=== PATIENT | male | born 1950 | race Caucasian/White ===

== ENCOUNTER 2019-04-01 15:46 | Observation (INO) | payer MEDICARE ==
[~2019-04-01] VITALS: Ht 185.4 cm; Wt 104.3 kg
[~2019-04-01 15:46] MED LIST: ASPIRIN81 MG PO; CLOPIDOGREL75 MG PO; CO Q10; D3-10001000 UNIT; IBUPROFEN600 MG PO; LEVOTHYROXIN25 MC1 PO; OLMESARTAN MEDO1 TA1; PROCARDIA XL90 MG PO; TAMSULOSIN HCL0.4 MG PO; [UNRECOGNIZED DRUG - OTHER]
[2019-04-01 16:45] LABS: HEMATOCRIT 44.4 % (39.0-50.0); HEMOGLOBIN 15.5 g/dl (14.0-18.0); IMMATURE GRANULOCYTES 0.4 % (0.0-5.0); MEAN CELL VOLUME 85.4 fL CALC (80.0-100.0); MEAN CORPUSCULAR HGB 29.8 pG CALC (26.0-32.0); MEAN CORPUSCULAR HGB CONC 34.9 g/L CALC (32.0-36.0); NEUT# 5.6 thou/uL (1.82-7.42); RED BLOOD COUNT 5.2 mill/uL (4.70-6.10); RED CELL DISTRI WIDTH 13.1 % (11.5-15.5)
[2019-04-01 16:45] LABS: URINE BILIRUBIN - DIPSTICK NEGATIVE (NEGATIVE); URINE BLOOD DIPSTICK TRACE-INTACT (NEGATIVE); URINE COLOR YELLOW; URINE GLUCOSE - DIPSTICK NEGATIVE (NEGATIVE); URINE KETONE NEGATIVE (NEGATIVE); URINE LEUK ESTERASE NEGATIVE (NEGATIVE); URINE NITRITE - DIPSTICK NEGATIVE (Negative); URINE PH 6.5 (4.5-8.0); URINE PROTEIN - DIPSTICK NEGATIVE (NEG-TRACE); URINE UROBILINOGEN - DIPSTICK 0.2 E.U./dL (0.2)
[2019-04-01 16:49] LABS: ALBUMIN 5.3 g/dL (3.2-5.0); ALKALINE PHOSPHATASE 78 u/l (38-126); ANION GAP 17 (6-22 (CALC)); BUN 17 mg/dL (8-23); BUN/CREATININE RATIO 18 (12-20 (CALC)); CARBON DIOXIDE 25 mmol/l (22-30); CHLORIDE 98 mmol/l (95-108); GFR > 60 ML/MIN (>=60 (CALC)); GFR FOR AFR.AMER. > 60 ML/MIN (>=60 (CALC)); LIPASE 118 u/l (23-300); POTASSIUM 3.3 mmol/l (3.5-5.1); SGOT/AST 42 u/l (19-48); SODIUM 137 mmol/l (137-146)
[2019-04-01 16:51] LABS: BILIRUBIN, TOTAL 1.3 mg/dL (0.0-1.4)
[2019-04-01] MEDS ORDERED: VIAGRA50 MG PO (17:45)
[2019-04-01 21:00] VITALS: BP 149/83
[2019-04-01 23:56] VITALS: BP 119/68
[2019-04-02 04:07] VITALS: BP 123/71
[2019-04-02 06:12] LABS: HEMATOCRIT 39.4 % (39.0-50.0); HEMOGLOBIN 13.8 g/dl (14.0-18.0); IMMATURE GRANULOCYTES 0.5 % (0.0-5.0); MEAN CELL VOLUME 85.3 fL CALC (80.0-100.0); MEAN CORPUSCULAR HGB 29.9 pG CALC (26.0-32.0); NEUT# 6.18 thou/uL (1.82-7.42); RED BLOOD COUNT 4.62 mill/uL (4.70-6.10)
[2019-04-02 06:32] LABS: ALKALINE PHOSPHATASE 54 u/l (38-126); AMYLASE 68 u/l (30-110); ANION GAP 13 (6-22 (CALC)); BILIRUBIN, TOTAL 1.2 mg/dL (0.0-1.4); BUN 21 mg/dL (8-23); BUN/CREATININE RATIO 19 (12-20 (CALC)); CARBON DIOXIDE 26 mmol/l (22-30); CHLORIDE 103 mmol/l (95-108); CREATININE 1.1 mg/dL (0.7-1.3); GFR > 60 ML/MIN (>=60 (CALC)); GFR FOR AFR.AMER. > 60 ML/MIN (>=60 (CALC)); LIPASE 76 u/l (23-300); MAGNESIUM 2.1 mg/dL (1.6-2.3); POTASSIUM 3.5 mmol/l (3.5-5.1); SGOT/AST 24 u/l (19-48); SODIUM 138 mmol/l (137-146)
[2019-04-02 06:35] LABS: ALBUMIN 4.1 g/dL (3.2-5.0); TOTAL PROTEIN 6.6 g/dL (6.3-8.2)
[2019-04-02 09:01] VITALS: BP 141/81
[2019-04-02 11:00] VITALS: BP 140/79
[2019-04-02 15:52] VITALS: BP 148/80
[2019-04-02 20:19] VITALS: BP 142/80
[2019-04-02 21:10] VITALS: BP 137/80
== END 2019-04-02 21:20 | disposition short-term general hospital (02) ==
LOC: ED 15:46 → ED-I 19:19 → ED 19:31 → MS2 19:32
PROVIDERS: ADMIT Internal Medicine Nephrology; ATTEND Internal Medicine Nephrology
DX: I25.110 Atherosclerotic heart disease of native coronary artery with unstable angina pectoris (principal); I10 Essential (primary) hypertension; E87.6 Hypokalemia; E78.5 Hyperlipidemia, unspecified; E03.9 Hypothyroidism, unspecified; E55.9 Vitamin D deficiency, unspecified; N40.0 Benign prostatic hyperplasia without lower urinary tract symptoms; N52.9 Male erectile dysfunction, unspecified; I25.2 Old myocardial infarction; Z95.5 Presence of coronary angioplasty implant and graft; Z79.02 Long term (current) use of antithrombotics/antiplatelets; Z79.82 Long term (current) use of aspirin
CPT/HCPCS: Q9967

== ENCOUNTER 2019-07-04 16:04 | Observation (INO) | payer MEDICARE ==
[~2019-07-04] VITALS: Ht 185.4 cm; Wt 97.0 kg
[~2019-07-04 16:04] MED LIST changes: +VIAGRA50 MG PO
--- NOTE | 2019-07-04 16:04 | NUR ---
PT TO ROOM WITH STEADY GAIT
--- NOTE | 2019-07-04 16:35 | NUR ---
PT RESTING ON STRETCHER, VERY ANXIOUS AND COMPLAINS OF PAIN, VERY SHORT WITH STAFF STATING YOU GOTTA DO SOMETHING FOR ME, I CANT BE ANSWERING ALL THESE STUPOD QUESTIONS WHEN IM HIS MISERABLE, ASK MY SHE CAN ANSWER ALL THOSE QUESTIONS, ATTEMPTS TO EDUCATE PT REGARDING PLAN OF CARE STEPS NECESSARY TO PROVIDE CARE ETC, GO UNHEARD PT TALKSCONINUOUSLY ABOUT HOW MISERABLE HE IS ETC..
[2019-07-04] MEDS ORDERED: METOPROL TAR25 MG PO (17:17)
[2019-07-04 17:22] LABS: IMMATURE GRANULOCYTES 0.5 % (0.0-5.0); MEAN CELL VOLUME 86.9 fL CALC (80.0-100.0); MEAN CORPUSCULAR HGB 30.1 pG CALC (26.0-32.0); MEAN CORPUSCULAR HGB CONC 34.6 g/L CALC (32.0-36.0); NEUT# 9.45 thou/uL (1.82-7.42); RED BLOOD COUNT 3.52 mill/uL (4.70-6.10); RED CELL DISTRI WIDTH 13.6 % (11.5-15.5)
[2019-07-04 17:23] LABS: HEMATOCRIT 30.6 % (39.0-50.0); HEMOGLOBIN 10.6 g/dl (14.0-18.0)
--- NOTE | 2019-07-04 17:30 | NUR ---
1645 - [address]F [address] DANG INSERTION ATEMPTED WITHOUT SUCCESS. (PENILE BLEEDING NOTED) 1646 - 20G IV ACCESS INSERTED IN LAC ON FIRST ATTEMPT 1650 - MEDICATED FOR PAINAND ANXIETY 1655 18 F COUDE INSERTED WITH 500 ML ARNULFO RED BLOODY URINE OUT. 1700 - SPOKE WITH AND 18F COUDE REMOVED AND 223F [address] DANG INSERTED WITHOUT INCIDENT AND ANOTHER 800 ML ARNULFO RED BLOODY URINE NOTED. WILL START CBI AFTER LARGE VOLUME BAG OBTAINED 1715 - CBI INTIATED AND URINE CLEARS FAIRLY QUICKLY PT VERBALIZES IMPROVED PAIN CONTROL AND COMFORT. AT BEDSIDE CURRENTLY AWARE OF PLANNED ADMISSION FOR CBI OVERNIGHT AND ADRIANA TO READDRESS IN AM
[2019-07-04 17:37] LABS: ALBUMIN 3.9 g/dL (3.2-5.0); ALKALINE PHOSPHATASE 75 u/l (38-126); ANION GAP 14 (6-22 (CALC)); BILIRUBIN, TOTAL 0.8 mg/dL (0.0-1.4); BUN 21 mg/dL (8-23); BUN/CREATININE RATIO 22 (12-20 (CALC)); CARBON DIOXIDE 26 mmol/l (22-30); CHLORIDE 98 mmol/l (95-108); GFR > 60 ML/MIN (>=60 (CALC)); GFR FOR AFR.AMER. > 60 ML/MIN (>=60 (CALC)); POTASSIUM 3.4 mmol/l (3.5-5.1); SGOT/AST 19 u/l (19-48); TOTAL PROTEIN 6.6 g/dL (6.3-8.2)
[2019-07-04 17:38] LABS: SODIUM 135 mmol/l (137-146)
[2019-07-04] MEDS ORDERED: ISOSORB MONO60 M1 PO (18:16)
[2019-07-04] MEDS ORDERED: ATORVASTATIN CA40 MG PO (18:17)
[2019-07-04] MEDS ORDERED: NITROGLYCERIN0.4 MG SL (18:18)
[2019-07-04] MEDS ORDERED: HYDROCO/APAP1 T10 PO (18:18)
--- NOTE | 2019-07-04 19:00 | NUR ---
RECEIVED REPORT FROM LALA. MADINA RUNNING WITH JANA CARMEN. N/C AT THIS TIME
--- NOTE | 2019-07-04 19:00 | NUR ---
REPORT RECEIVED FROM CARLOS ALBERTO BILL. PT RESTING IN BED. NO S/S OF DISTRESS AT THIS TIME. WILL CONTINUE TO MONITOR.
--- NOTE | 2019-07-04 19:20 | NUR ---
REPORT CALLED TO CARLOS ALBERTO MONTOYA
--- NOTE | 2019-07-04 19:35 | NUR ---
TO MS2 VIA STRETCHER. CBI INFUSING-TOLERATING WELL. UROLOGIST TO SEE IN AM.
[2019-07-04 19:40] VITALS: BP 134/75
--- NOTE | 2019-07-04 19:40 | NUR ---
PT ARRIVED TO THE FLOOR VIA STRETCHER, ACCOMPANIED BY ED STAFF. PT X3 ASSIST FROM STRETCHER TO BED. ALERT AND ORIENTED. RESPIRATIONS EVEN AND UNLABORED ON RA. LUNGS SOUND CLEAR. IV #20 LAC, APPEARS HEALTHY AND PATENT. CBI IN PROGRESS. BRUISING NOTED TO THE ABDOMEN. PEDAL PULSES WEAK. PT ORIENTED TO ROOM AND CALL [facility] SYSTEM. SAFETY PRECAUTIONS IN PLACE. WILL CONTINUE TO MONITOR.
--- NOTE | 2019-07-05 00:02 | NUR ---
PT RESTING IN BED. NO SIGNS OR SYMPTOMS OF DISTRESS. CBI IN PROGRESS, DANG DRAINING TO GRAVITY. SAFETY PRECAUTIONS IN PLACE. WILL CONTINUE TO MONITOR.
[2019-07-05 04:00] VITALS: BP 130/76
--- NOTE | 2019-07-05 04:58 | NUR ---
PT RESTING IN BED WITH EYES CLOSED. RESPIRATIONS EVEN AND UNLABORED ON RA. NO S/S OF DISTRESS AT THIS TIME. WILL CONTINUE TO MONITOR.
[2019-07-05 05:35] LABS: HEMATOCRIT 27.2 % (39.0-50.0); HEMOGLOBIN 9.4 g/dl (14.0-18.0); MEAN CELL VOLUME 88.3 fL CALC (80.0-100.0); MEAN CORPUSCULAR HGB 30.5 pG CALC (26.0-32.0); MEAN CORPUSCULAR HGB CONC 34.6 g/L CALC (32.0-36.0); RED BLOOD COUNT 3.08 mill/uL (4.70-6.10); RED CELL DISTRI WIDTH 13.5 % (11.5-15.5)
[2019-07-05 05:36] LABS: ANION GAP 12 (6-22 (CALC)); BUN 17 mg/dL (8-23); BUN/CREATININE RATIO 21 (12-20 (CALC)); CARBON DIOXIDE 27 mmol/l (22-30); CHLORIDE 99 mmol/l (95-108); CREATININE 0.8 mg/dL (0.7-1.3); GFR > 60 ML/MIN (>=60 (CALC)); GFR FOR AFR.AMER. > 60 ML/MIN (>=60 (CALC)); POTASSIUM 3.4 mmol/l (3.5-5.1); SODIUM 135 mmol/l (137-146)
[2019-07-05 07:17] VITALS: BP 148/79
--- NOTE | 2019-07-05 08:35 | NUR ---
CALL RECEIVED FROM DR OLMSTEAD. INFORMED OF PTS ASSESSMENT AND DANG DRAINING CLEAR PINK TINGED URINE WITH CBI GOING SLOWLY, NO CLOTS NOTED. PER DR OLMSTEAD STOP CBI. IF URINE REMAINS PINK WITH NO BLOOD OR CLOTS REMOVE DANG AT 10AM. ORDER RECEIVED WITH VERBAL READ BACK CONFIRMATION AND CHARTED. DR OLMSTEAD DID CALL PT AND SPEAK TO PT REGARDING HIS PLAN . PT RESTING IN BED. RESP EVEN AND UNLABORED. PT DENIES ANY NAUSEA OR DISCOMFORT. LUNGS CLEAR BILAT. ABD SOFT WITH BOWEL SOUNDS PRESENT. [address] WAY DANG DRAINING PINK TINGED URINE. IV SITE PATENT IN LEFT A.C. NSS AT 100CC/HR. PT DENIES ANY DISCOMFORT. FREQUENT ROUNDS MADE. CALL YAO WITHIN REACH.
--- NOTE | 2019-07-05 09:40 | NUR ---
AT BEDSIDE. CBI REMAINS OFF. DANG IS DRAINING REDDISH URINE WITH VERY SMALL CLOTS NOTED IN TUBING. PT DOES C/O LOWER ABD PRESSURE. WILL CONTINUE TO MONITOR. CALL YAO WITHIN REACH.
--- NOTE | 2019-07-05 10:30 | NUR ---
CALL PLACED TO DR OLMSTEAD ON HIS CELL PHONE. INFORMED DANG IS DRAINING BLOODY URINE WITH FEW SMALL CLOTS NOTED IN TUBING. NEW ORDER RECEIVED TO RESUME CBI AND PT MAY HAVE 2GM NA DIET AND MAY EAT. ORDER RECEIVED WITH VERBAL READ BACK CONFIRMATION AND CHARTED.
--- NOTE | 2019-07-05 10:35 | NUR ---
PT AND PTS INFORMED THIS SOFTWARE INSTALLER SPOKE WITH DR OLMSTEAD AND HE IS AWARE DANG IS DRAINING BLOODY URINE WITH SMALL CLOTS. INFORMED CBI TO BE RESUMED AND PT MAY EAT. CBI RESUMED AND LUNCH TRAY HAS BEEN ORDERED. MAIKEL CARCAMO FROM CASE MANAGEMENT INTO SPEAK WITH PT AND HIS .
--- NOTE | 2019-07-05 12:15 | NUR ---
PT SITTING IN RECLINER EATING LUNCH. IV SITE PATENT CBI INFUSING . DANG IS PATENT DRAINING PINK TINGED URINE WITH NO CLOTS NOTED. PT DENIES ANY PAIN OR DISCOMFORT. AT BEDSIDE. FREQUENT ROUNDS MADE. CALL YAO WITHIN REACH.
--- NOTE | 2019-07-05 12:35 | NUR ---
DR HILL IN TO SPEAK WITH PT REGARDING PLAN OF CARE. UPDATED DR HILL ON PTS ASSESSMENT AND INFORMED DR OLMSTEAD SAID TO CONTINUE CBI.
[2019-07-05 15:00] VITALS: BP 122/70
--- NOTE | 2019-07-05 15:01 | NUR ---
PT RESTING IN BED WITH AT BEDSIDE. PT MEDICATED WITH TYLENOL 650MG P.O FOR LEG DISCOMFORT. IV SITE PATENT. DANG CATH IS DRAINING CLEAR LIGHT PINK URINE WITHOUT ANY DIFFICULTY. CBI INFUSING SLOWLY . WILL CONTINUE TO MONITOR. FREQUENT ROUNDS MADE. CALL YAO WITHIN REACH.
--- NOTE | 2019-07-05 16:28 | NUR ---
PT RESTING IN BED. ASSESSMENT UNCHANGED. DANG CONTINUE TO DRAIN CLEAR TO LIGHT PINK URINE WITHOUT ANY DIFFICULTY. CBI ON SLOWLY. IV SITE PATENT. PT OFFERS NO COMPLAINTS AT THIS TIME. FREQUENT ROUNDS MADE. CALL YAO WITHIN REACH.
--- NOTE | 2019-07-05 17:30 | NUR ---
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 AT BEDSIDE. DANG IS DRAINING CLEAR PALE URINE. CBI STOPPED TEMPORARILY TO SEE IF PT IS HAVING ANY BLEEDING. NO BLEEDING NOTED. PT DENIES ANY DISCOMFORT. IV SITE PATENT. ASSESSMENT UNCHANGED. VSS. CALL YAO WITHIN REACH.
--- NOTE | 2019-07-05 20:00 | NUR ---
PT RESTING IN BED. ALERT AND ORIENTED. RESPIRATIONS EVEN AND UNLABORED ON RA. LUNGS SOUND CLEAR. PEDAL PULSES STRONG. CBI, 3 WAY DANG DRAINING TO GRAVITY. #20 LAC WITH NS @ 100 ML/HR, SITE APPEARS HEALTHY. CALL YAO WITHIN REACH. WILL CONTINUE TO MONITOR.
[2019-07-05 20:37] VITALS: BP 128/74
--- NOTE | 2019-07-06 00:30 | NUR ---
PT RESTING IN BED. RESPIRATIONS EVEN AND UNLABORED ON RA. SAFETY PRECAUTIONS IN PLACE. WILL CONTINUE TO MONITOR.
[2019-07-06 04:00] VITALS: BP 125/68
--- NOTE | 2019-07-06 04:15 | NUR ---
PT RESTING IN BED. RESPIRATIONS EVEN AND UNLABORED ON RA. NO S/S OF DISTRESS AT THIS TIME. SAFETY PRECAUTIONS IN PLACE. WILL CONTINUE TO MONITOR.
[2019-07-06 06:00] LABS: HEMATOCRIT 30.4 % (39.0-50.0); HEMOGLOBIN 10.3 g/dl (14.0-18.0); MEAN CELL VOLUME 88.6 fL CALC (80.0-100.0); MEAN CORPUSCULAR HGB CONC 33.9 g/L CALC (32.0-36.0); RED BLOOD COUNT 3.43 mill/uL (4.70-6.10); RED CELL DISTRI WIDTH 13.5 % (11.5-15.5)
[2019-07-06 06:16] LABS: ANION GAP 10 (6-22 (CALC)); BUN 10 mg/dL (8-23); BUN/CREATININE RATIO 14 (12-20 (CALC)); CARBON DIOXIDE 27 mmol/l (22-30); CHLORIDE 104 mmol/l (95-108); CREATININE 0.7 mg/dL (0.7-1.3); GFR > 60 ML/MIN (>=60 (CALC)); GFR FOR AFR.AMER. > 60 ML/MIN (>=60 (CALC)); POTASSIUM 3.8 mmol/l (3.5-5.1); SODIUM 137 mmol/l (137-146)
--- NOTE | 2019-07-06 08:00 | NUR ---
PT AWAKE RESTING IN BED. PT IS ALERT AND ORIENTED X4. PT IS FORGETFUL AT TIMES. LUNGS CLEAR BILAT. ABD SOFT AND NONDISTENDED WITH BOWEL SOUNDS PRESENT. 3 WAY DANG CATH IS PATENT DRAINING LIGHT PALE URINE WITH NO CLOTS NOTED. CBI INFUSING SLOWLY. NO LOWER EXT EDEMA NOTED. PEDAL PULSES PALPATED BILAT. IV SITE PATENT IN LEFT A.C. NO REDNESS OR SWELLING AT SITE . IVF NSS AT 100CC/HR. PT DENIES ANY DISCOMFORT. FREQUENT ROUNDS MADE. CALL YAO WITHIN REACH.
[2019-07-06 08:31] VITALS: BP 125/71
--- NOTE | 2019-07-06 10:18 | NUR ---
PT OOB IN CHAIR. AT BEDSIDE. RESP EVEN AND UNLABORED. PT BATHED AND LINENS CHANGED. DANG PATENT DRAINING CLEAR YELLOW URINE. CBI INFUSING. IV SITE PATENT. OFFERS NO COMPLAINTS. CALL YAO WITHIN REACH.
--- NOTE | 2019-07-06 11:30 | NUR ---
DR OLMSTEAD IN TO SPEAK WITH PT AND PTS . ORDER RECEIVED TO STOP CBI AND D/C DANG CATH. DR OLMSTEAD WANTS TO BE CALLED LATER THIS AFTERNOON WITH REPORT ON URINE OUTPUT. DR OLMSTEAD TOLD PT AND PTS HE CAN RESTART HIS BLOOD THINNER ON MONDAY. ORDERS RECEIVED WITH VERBAL READ BACK CONFIRMATION AND CHARTED.
--- NOTE | 2019-07-06 12:20 | NUR ---
2000 CC OF CLEAR YELLOW URINE EMPTIED FROM DANG CATH. NO CLOTS NOTED. DANG CATH BALLOON DEFLATED AND DANG D/RANDALL WITHOUT ANY DIFFICULTY. PT COMPLAINS OF ABD PAIN AND TENDERNESS WITH REMOVAL. URINAL GIVEN TO PT AND INFORMED TO RING CALL YAO WITH ANY URINARY OUTPUT. PT INFORMED HE MAY FEEL URGENCY AND HAVE SOME INCONTENCE. INSTRUCTED TO RING WHEN HE VOIDS IN URINAL. AT BEDSIDE. CALL YAO WITHIN REACH.
--- NOTE | 2019-07-06 12:34 | NUR ---
PT MEDICATED WITH LORTAB 7.5MG ONE TAB P.O FOR ABD DISCOMFORT AFTER DANG D/RANDALL. AT BEDSIDE. PT AGITATED. FREQUENT ROUNDS MADE. CALL YAO WITHIN REACH.
[2019-07-06 15:25] VITALS: BP 129/75
--- NOTE | 2019-07-06 15:40 | NUR ---
PT RESTING IN BED. HEPLOCK D/RANDALL WITH CATH INTACT. REVIEWED ALL D/C INSTURCTIONS AND MEDS WITH PT. PT AWARE DR OLMSTEAD OFFICE WILL CALL HIM TO SET UP FOLLOW UP APPT. AWARE TO RESUME BLOOD THINNER ON MONDAY HER DR OLMSTEAD. TEACHING DONE REGARDING HOME MEDS. NO SCRIPTS GIVEN. AT BEDSIDE. PT IS IN STABLE CONDITION.
== END 2019-07-06 17:00 | disposition home or self-care (01) ==
LOC: ED 16:04 → ED-I 17:59 → ED 18:56 → MS2 18:57
PROVIDERS: Emergency Medicine; ADMIT Internal Medicine; ATTEND Internal Medicine
PROC: 0T9B70Z Drainage of Bladder with Drainage Device, Via Natural or Artificial Opening (ICD-10-PCS; principal; 2019-07-04)
DX: N99.820 Postprocedural hemorrhage of a genitourinary system organ or structure following a genitourinary system procedure (principal); I25.10 Atherosclerotic heart disease of native coronary artery without angina pectoris; I10 Essential (primary) hypertension; I25.2 Old myocardial infarction; Y83.6 Removal of other organ (partial) (total) as the cause of abnormal reaction of the patient, or of later complication, without mention of misadventure at the time of the procedure; Z95.5 Presence of coronary angioplasty implant and graft; Z79.02 Long term (current) use of antithrombotics/antiplatelets; Z79.82 Long term (current) use of aspirin
CPT/HCPCS: J2060

== ENCOUNTER 2019-08-06 03:25 | Emergency (ER) | payer MEDICARE ==
[~2019-08-06] VITALS: Ht 185.4 cm; Wt 93.2 kg
[~2019-08-06 03:25] MED LIST changes: +ATORVASTATIN CA40 MG PO; +HYDROCO/APAP1 T10 PO; +ISOSORB MONO60 M1 PO; +METOPROL TAR25 MG PO; +NITROGLYCERIN0.4 MG SL
[2019-08-06 03:57] LABS: URINE BILIRUBIN - DIPSTICK NEGATIVE (NEGATIVE); URINE BLOOD DIPSTICK LARGE (NEGATIVE); URINE COLOR YELLOW; URINE GLUCOSE - DIPSTICK NEGATIVE (NEGATIVE); URINE KETONE NEGATIVE (NEGATIVE); URINE PH 7.5 (4.5-8.0); URINE PROTEIN - DIPSTICK 100 mg/dL (NEG-TRACE); URINE SPECIFIC GRAVITY 1.015; URINE UROBILINOGEN - DIPSTICK 0.2 E.U./dL (0.2)
[2019-08-06 03:59] LABS: URINE LEUK ESTERASE SMALL (NEGATIVE)
[2019-08-06 04:00] LABS: URINE NITRITE - DIPSTICK NEGATIVE (Negative)
[2019-08-06 04:03] LABS: URINE RBC TNTC RBC/hpf (0-5); URINE WBC 20-50 WBC/hpf (0-5)
[2019-08-06 04:04] LABS: URINE BACTERIA MODERATE hpf; URINE EPITHELIAL CELLS MODERATE EPI/hpf (0-FEW)
[2019-08-06 04:56] LABS: IMMATURE GRANULOCYTES 0.4 % (0.0-5.0); MEAN CORPUSCULAR HGB 29.5 pG CALC (26.0-32.0); MEAN CORPUSCULAR HGB CONC 34.4 g/L CALC (32.0-36.0); NEUT# 5.79 thou/uL (1.82-7.42); RED BLOOD COUNT 4.57 mill/uL (4.70-6.10); RED CELL DISTRI WIDTH 13.4 % (11.5-15.5)
[2019-08-06 04:57] LABS: HEMATOCRIT 39.3 % (39.0-50.0); HEMOGLOBIN 13.5 g/dl (14.0-18.0)
[2019-08-06 05:29] LABS: ALBUMIN 4.9 g/dL (3.2-5.0); ALKALINE PHOSPHATASE 89 u/l (38-126); ANION GAP 15 (6-22 (CALC)); BILIRUBIN, TOTAL 0.8 mg/dL (0.0-1.4); BUN 30 mg/dL (8-23); BUN/CREATININE RATIO 25 (12-20 (CALC)); CARBON DIOXIDE 28 mmol/l (22-30); CHLORIDE 100 mmol/l (95-108); CREATININE 1.2 mg/dL (0.7-1.3); GFR > 60 ML/MIN (>=60 (CALC)); GFR FOR AFR.AMER. > 60 ML/MIN (>=60 (CALC)); POTASSIUM 3.7 mmol/l (3.5-5.1); SGOT/AST 34 u/l (19-48); SODIUM 140 mmol/l (137-146)
[2019-08-06 06:30] VITALS: BP 135/79
[2019-08-06] MEDS ORDERED: TAMSULOSIN0.4 MG PO (06:44)
[2019-08-06] MEDS ORDERED: CEPHALEXIN500 MG PO (06:44)
[2019-08-06] MEDS ORDERED: ULTRAM50 M1 PO (06:45)
== END 2019-08-06 07:05 | disposition home or self-care (01) ==
LOC: ED 03:25
PROVIDERS: Emergency Medicine
PROC: 0T9B70Z Drainage of Bladder with Drainage Device, Via Natural or Artificial Opening (ICD-10-PCS; principal; 2019-08-06)
DX: R33.9 Retention of urine, unspecified (principal); N39.0 Urinary tract infection, site not specified; I25.10 Atherosclerotic heart disease of native coronary artery without angina pectoris; I25.2 Old myocardial infarction; I10 Essential (primary) hypertension; Z95.5 Presence of coronary angioplasty implant and graft; Z98.890 Other specified postprocedural states

== ENCOUNTER 2019-09-12 23:33 | Day surgery (SDC) | payer MEDICARE ==
[~2019-09-12] VITALS: Ht 185.4 cm; Wt 94.8 kg
[~2019-09-12 23:33] MED LIST changes: +CEPHALEXIN500 MG PO; +TAMSULOSIN0.4 MG PO; +ULTRAM50 M1 PO
[2019-09-13] VITALS (9 sets, daily range): BP systolic 125–156; BP diastolic 72–87
[2019-09-13 02:05] LABS: HEMATOCRIT 42.5 % (39.0-50.0); HEMOGLOBIN 14.7 g/dl (14.0-18.0); IMMATURE GRANULOCYTES 0.6 % (0.0-5.0); MEAN CELL VOLUME 83.7 fL CALC (80.0-100.0); MEAN CORPUSCULAR HGB 28.9 pG CALC (26.0-32.0); MEAN CORPUSCULAR HGB CONC 34.6 g/L CALC (32.0-36.0); NEUT# 9.94 thou/uL (1.82-7.42); RED BLOOD COUNT 5.08 mill/uL (4.70-6.10); RED CELL DISTRI WIDTH 12.9 % (11.5-15.5)
[2019-09-13 02:17] LABS: ALBUMIN 5.5 g/dL (3.2-5.0); ALKALINE PHOSPHATASE 95 u/l (38-126); ANION GAP 16 (6-22 (CALC)); BILIRUBIN, TOTAL 0.7 mg/dL (0.0-1.4); BUN 30 mg/dL (8-23); BUN/CREATININE RATIO 26 (12-20 (CALC)); CARBON DIOXIDE 28 mmol/l (22-30); CHLORIDE 101 mmol/l (95-108); CREATININE 1.2 mg/dL (0.7-1.3); GFR > 60 ML/MIN (>=60 (CALC)); GFR FOR AFR.AMER. > 60 ML/MIN (>=60 (CALC)); POTASSIUM 3.5 mmol/l (3.5-5.1); SGOT/AST 43 u/l (19-48); SODIUM 141 mmol/l (137-146); TOTAL PROTEIN 9.2 g/dL (6.3-8.2)
[2019-09-13] MEDS ORDERED: HYDROCO/APAP1 T10 PO (12:35)
[2019-09-13] MEDS ORDERED: CIPROFLOXACN500 MG PO (12:52)
== END 2019-09-13 17:05 | disposition home health service (06) ==
LOC: ED 23:33 → ORM 09-13 03:00 → ED 09-13 03:00 → UNDODEPER 09-13 03:20 → ED 09-13 03:20 → ORM 09-13 04:35 → MS2 09-13 05:04 → ED 09-13 05:04 → ORM 09-13 05:04 → MS2 09-13 17:05
PROVIDERS: Emergency Medicine; ATTEND Urology
PROC: 0TCB8ZZ Extirpation of Matter from Bladder, Via Natural or Artificial Opening Endoscopic (ICD-10-PCS; principal; 2019-09-13)
PROC: 0TCC8ZZ Extirpation of Matter from Bladder Neck, Via Natural or Artificial Opening Endoscopic (ICD-10-PCS; 2019-09-13)
PROC: 0T7C8ZZ Dilation of Bladder Neck, Via Natural or Artificial Opening Endoscopic (ICD-10-PCS; 2019-09-13)
PROC: 0T9B80Z Drainage of Bladder with Drainage Device, Via Natural or Artificial Opening Endoscopic (ICD-10-PCS; 2019-09-13)
DX: R33.9 Retention of urine, unspecified (principal); N32.89 Other specified disorders of bladder; I10 Essential (primary) hypertension; I25.10 Atherosclerotic heart disease of native coronary artery without angina pectoris; E03.9 Hypothyroidism, unspecified; E78.5 Hyperlipidemia, unspecified; F17.220 Nicotine dependence, chewing tobacco, uncomplicated
CPT/HCPCS: J0131; Q9967